=== PATIENT | male | born 1960 | race Caucasian/White ===

== ENCOUNTER 2017-04-27 05:54 | Day surgery (SDC) | payer BC ==
[2017-04-17 11:13] VITALS: BMI 25.9
[2017-04-27] MEDS ORDERED: Clindamycin/D5W 900 mg/50 ml Premix Bag ONE (07:03)
[2017-04-27] MEDS ORDERED: Midazolam HCl 2 mg/2 ml Vial ONE ×2 (07:07→07:09)
[2017-04-27] MEDS ORDERED: Fentanyl 100 MCG/2 ML VIAL ONE ×2 (07:09→09:48)
[2017-04-27] MEDS ORDERED: Bupivacaine HCl 0.5%/Epinephrine 1:200,000/PF 30 ml Vial ONE (07:47)
--- NOTE | 2017-04-27 09:19 | OP ---
PREOPERATIVE DIAGNOSIS: Left inguinal hernia. SURGEON: Tim Mcgovern M.D. PROCEDURE PERFORMED: Left inguinal hernia repair with mesh. INDICATIONS: The patient is a 57-year-old male who has had a painful left groin bulge and was found to have inguinal hernia. FINDINGS: Left indirect inguinal hernia. PROCEDURE IN DETAIL: After informed consent was obtained, the patient was taken to the operating ro om and given general mask anesthesia, placed in the supine position. His groin was prepped and drap ed in the usual fashion. Local anesthesia infiltrated subcutaneously and deep. A transverse left i nguinal incision was performed. The subcu divided sharply. The fascia was incised in the direction of its fibers through the external ring. Spermatic cord was isolated with a [place] drain. The fl oor inspected, it was intact. Cremasteric fibers were and a hernia sac was found. This w as dissected from surrounding cord structures down to the internal ring. It was reduced. Reduction was maintained with a PHS hernia system. Posterior layer placed in the preperitoneal space. Anter ior, it was laid out, sutured to the pubic tubercle medially, tucked under the external oblique fasc ia laterally. A notch was cutout for the spermatic cord. Hemostasis was assured. The cord placed anatomically and the external oblique fascia closed with a running 3-0 Vicryl. Isela's closed with interrupted 3-0 Vicryl and the skin closed with a running subcuticular 4-0 Rapide. Steri-Strips ap plied. Sterile bandage applied. The patient tolerated the procedure well and transferred to [facility] in good condition. Sponge and needle count verified correct x2.
== END 2017-04-27 11:00 | disposition home or self-care (01) ==
LOC: SDC 05:54
PROVIDERS: ATTEND Surgery
PROC: 0YU60JZ Supplement Left Inguinal Region with Synthetic Substitute, Open Approach (ICD-10-PCS; principal; 2017-04-27)
DX: K40.90 Unilateral inguinal hernia, without obstruction or gangrene, not specified as recurrent (principal); E78.5 Hyperlipidemia, unspecified; K21.9 Gastro-esophageal reflux disease without esophagitis; Z88.5 Allergy status to narcotic agent; Z88.0 Allergy status to penicillin; Z98.890 Other specified postprocedural states
CPT/HCPCS: 96374; C1781; J0670; J2250; J3010; J3490